=== PATIENT | female | born 1955 | race Hispanic/Latino ===

== ENCOUNTER 2016-03-03 10:21 | Outpatient (CLI) | payer BC ==
--- NOTE | 2016-03-03 12:48 | Mammography Report ---
LEFT DIGITAL DIAGNOSTIC MAMMOGRAM: 03/03/16 10:21:00 CLINICAL: For clip placement immediately status post MRI needle biopsy. COMPARISON:None. FINDINGS: A biopsy clip is identified in the upper-outer quadrant and the position correlates with the previously described MRI lesion. IMPRESSION: Concordant clip placement status post MRI biopsy. BI-RADS CATEGORY: 4--Suspicious Pathology pending.
--- NOTE | 2016-03-03 13:55 | Magnetic Resonance Report ---
MRI GUIDED VACUUM ASSISTED CORE BIOPSY LEFT BREAST: 03/03/16 10:21:00 CLINICAL: High risk, history of ADH and a suspicious lesion by MRI. COMPARISON: 02/24/16 MRI FINDINGS: Consent for the procedure was obtained. A Vibrant dynamic postcontrast series was performed on a 1.5 Liss magnet using an 8 channel Sentinelle dedicated breast coil. The previously described upper outer lesion was localized and targeted using [employer] Sentinelle biopsy software. The skin was anesthetized with 1% lidocaine and a small dermatotomy was made. 2% lidocaine was administered for deeper anesthesia. 9-G biopsy was performed with an Supponor vacuum assisted device. Imaging demonstrated satisfactory positioning of the probe and samples were obtained. A clip was placed after confirmation of adequate sampling. The probe was removed and hemostasis was achieved with pressure to the site. A sterile dressing was applied. The patient tolerated the procedure well and there were no apparent complications. A two view mammogram demonstrated concordant clip placement. The patient left the department in good condition with instructions for wound care and follow-up. IMPRESSION: Uncomplicated MRI biopsy with clip placement left breast.
== END 2016-03-03 10:22 | disposition home or self-care (01) ==
LOC: SPVIMAG 10:21
PROVIDERS: ATTEND Surgery
DX: R92.8 Other abnormal and inconclusive findings on diagnostic imaging of breast (principal)
CPT/HCPCS: 19085; 88307; 88342; 88361; A9577; G0206

== ENCOUNTER 2016-03-24 08:13 | Day surgery (SDC) | payer BC ==
[~2016-03-24 08:13] MED LIST: WATER FOR IRRIG STERILE IR ONE
[2016-03-24] MEDS ORDERED: XYLOCAINE 1% 20 mL ONE (10:17)
[2016-03-24] MEDS ORDERED: LACTATED RINGERS 1,000 ML ONE (10:24)
[2016-03-24] MEDS ORDERED: VERSED ONE (10:48)
[2016-03-24] MEDS ORDERED: PEPCID IV ONE (10:48)
[2016-03-24] MEDS ORDERED: DIPRIVAN 10 MG/ML IV ONE (11:19)
[2016-03-24] MEDS ORDERED: DILAUDID ONE (11:19)
[2016-03-24] MEDS ORDERED: ANCEF/STERILE WATER 2 GM/20 ML IV ONE (12:55)
[2016-03-24] MEDS ORDERED: DECADRON ONE (12:56)
[2016-03-24] MEDS ORDERED: XYLOCAINE MPF 2% ONE (12:57)
[2016-03-24] MEDS ORDERED: ZOFRAN ONE (12:57)
[2016-03-24] MEDS ORDERED: MARCAINE 0.25% INFILTRATI ONE (13:20)
[2016-03-24] MEDS ORDERED: XYLOCAINE 1% 20 mL INFILTRATI ONE (13:20)
[2016-03-24] MEDS ORDERED: NACL P/F VIAL (10 ML) 10 ML ONE (13:54)
[2016-03-24] MEDS ORDERED: ePHEDrine SULFATE ONE (13:54)
[2016-03-24] MEDS ORDERED: PEPCID IV NR (14:00)
[2016-03-24] MEDS ORDERED: LACTATED RINGERS 1,000 ML IV SCH (14:00)
[2016-03-24] MEDS ORDERED: ANCEF/STERILE WATER 2 GM/20 ML IV NR (14:00)
[2016-03-24] MEDS ORDERED: VERSED IV NR (14:00)
--- NOTE | 2016-03-24 14:15 | Anesthesia Consultation ---
Anesthesia Consult and Med Hx Date of service: 03/24/16 - Airway Anesthetic Teeth Evaluation: Good, Bridges (back) ROM Head & Neck: Adequate Mental/Hyoid Distance: Adequate Mallampati Class: Class II Intubation Access Assessment: Probably Good - Pre-Operative Health Status ASA Pre-Surgery Classification: ASA2 Proposed Anesthetic Plan: General - Pulmonary Hx Smoking: Yes (CIGARETTES 1/2 PPD X 3 YRS) Hx Sleep Apnea: No - Central Nervous System Hx Psychiatric Problems: No - Other Systems Hx Cancer: Yes (LEFT BREAST, DX: 02/2016)
[2016-03-24] MEDS ORDERED: WATER FOR IRRIG STERILE IR ONE (14:16)
--- NOTE | 2016-03-24 14:16 | Anesthesia Day of Surgery ---
Anesthesia Day of Surgery - Day of Surgery Patient Examined: Yes Patient H&P Reviewed: Yes Patient is NPO: Yes
--- NOTE | 2016-03-24 14:27 | Short Stay Summary ---
Short Stay Documentation Date of service: 03/24/16 - History H&P: obtained from office - Allergies and Medications Current Medications: Allergies No Known Allergies Allergy (Unverified 03/17/16 09:55) Home Medications Medication Instructions Recorded Confirmed Last Taken Type Aspirin EC [Aspirin Enteric Coated 81 mg PO QDAY 03/17/16 03/24/16 03/19/16 History TAB] Calcium Carbonate [Calcium] 1,200 mg PO QDAY 03/17/16 03/17/16 03/23/16 History Cholecalciferol (Vitamin D3) 2,000 unit PO QDAY 03/17/16 03/17/16 03/23/16 History [Vitamin D3] Cyanocobalamin (Vitamin B-12) 1,000 mcg PO QDAY 03/17/16 03/17/16 03/23/16 History [B-12] Folic Acid 800 mcg PO QDAY 03/17/16 03/17/16 03/23/16 History Multivitamin Tab [Multiple Vitamin 1 each PO QDAY 03/17/16 03/17/16 03/23/16 History TAB (Theragran)] [place]-3 Fatty Acids [Fish Oil] 300 mg PO QDAY 03/17/16 03/17/16 03/23/16 History HYDROcodone/APAP 5-325 [[place] 1 each PO Q6HR PRN #30 tablet 03/24/16 Unknown Rx 5/325] Active Medications Cefazolin Sodium (Ancef/Sterile Water 2 Gm/20 Ml) 2 gm IV PREOP NR Stop: 03/24/16 23:59 Famotidine (Pepcid) 20 mg IV PREOP NR Stop: 03/24/16 23:59 Lactated Ringer's (Lactated Ringers) 1,000 mls @ 75 mls/hr IV DIRECT FEMI Midazolam HCl (Versed) 2 mg IV PREOP NR Stop: 03/24/16 23:59 - Brief post op/procedure progress note Date of procedure: 03/24/16 Pre-op diagnosis: Left breast cancer of the upper outer quadrant Post-op diagnosis: same Procedure: Left Needle localization partial mastectomy Anesthesia: GETA Findings: Wire and clip present within radiograph specimen Surgeon: ALLEN DASILVA Estimated blood loss: minimal Pathology: list (left partial mastectomy) Specimen disposition: to lab Condition: stable - Disposition Condition at discharge: Good Disposition: DISCHARGED TO HOME OR SELFCARE Short Stay Discharge Plan Activity: other (no heavy lifting) Diet: regular Wound: other (keep incision clean and dry and may shower in 24 hours; do not rub or scrub incision) Follow up with: PILLO COWAN MD [Primary Care Provider] - 7 Days ALLEN DASILVA MD [Staff Physician] - 7 Days Prescriptions: HYDROcodone/APAP 5-325 [[place] 5/325] 1 each PO Q6HR PRN #30 tablet PRN Reason: Pain
--- NOTE | 2016-03-24 14:31 | Operative Report ---
Operative Report Operative Report: Please see previous operative report
[2016-03-24] MEDS ORDERED: TYLENOL PO NR (15:00)
--- NOTE | 2016-03-24 15:06 | Mammography Report ---
Localization: The patient presents with a biopsy marker in the superior lateral left breast. A superior approach was utilized. Grid mammography reviews for localization. Following cleansing of the skin 1% lidocaine used for local anesthesia. A 3 cm Guzman needle was placed confirmed with mammography. Following placement of the wire and removal of the needle additional mammographic confirmation of position was used. No complications encountered.
--- NOTE | 2016-03-24 15:07 | Mammography Report ---
Operative specimen mammogram: A single tissue specimen is submitted it includes the targeted marker and the localizing wire.
[2016-03-24 15:23] VITALS: BP 124/90
--- NOTE | 2016-03-24 15:24 | Procedure Note ---
Date of procedure: 03/24/16 Pre-op diagnosis: lt breast lesion Procedure: needle loc Anesthesia: local Surgeon: HILDA MOSS Estimated blood loss: none Pathology: none Condition: stable (surgery)
--- NOTE | 2016-03-24 19:05 | Operative Report ---
Date of Surgery: 03/24/16 PREOPERATIVE DIAGNOSIS: Left breast cancer of the upper outer quadrant. POSTOPERATIVE DIAGNOSIS: Left breast cancer of the upper outer quadrant. PROCEDURE: Left needle localization partial mastectomy. SURGEON: Julia Byrnes M.D. ANESTHESIA: General. FINDINGS: Radiograph specimen with clip and wire present within the partial mastectomy specimen. COMPLICATIONS: None. DRAINS: None. DISPOSITION: PACU in good condition. INDICATIONS FOR OPERATIVE PROCEDURE: This is a 60-year-old lady, high risk for breast cancer given personal history of atypia with a recent abnormal screening MRI with findings of non-mass enhancement. 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 Recommendations were to proceed with a left partial mastectomy. PROCEDURE IN DETAIL: The patient was taken to the operating room and was laid supine. General anesthesia was administered without any complications. The left breast was prepped and draped in normal sterile operative fashion. Radiology placed wire prior to going back to preoperative holding. The wire was identified. Time out was performed. Skin incision was then made with a 15-blade knife with dissection taken down through the subcutaneous tissues. First began with raising of the superior flap, followed by lateral, medial, and inferior flaps. Specimen was then appropriately removed from the breast with the aid of Bovie cautery. The specimen was appropriately marked. Radiograph specimen with clip and wire present. Hemostasis was obtained. The subcutaneous tissues were approximated and closed with a 3-0 Vicryl and the skin brought together with running 4-0 Monocryl and Skin Affix. The patient tolerated surgery very well. She was awakened from anesthesia without any complications and transported to PACU in good condition. JOB# [id number] CHIQUI/KENZIE VINCENT
== END 2016-03-24 16:00 | disposition home or self-care (01) ==
LOC: OR 08:13
PROVIDERS: ATTEND Surgery
DX: C50.412 Malignant neoplasm of upper-outer quadrant of left female breast (principal); F15.90 Other stimulant use, unspecified, uncomplicated; M13.841 Other specified arthritis, right hand; Z87.891 Personal history of nicotine dependence; Z85.3 Personal history of malignant neoplasm of breast; Z90.49 Acquired absence of other specified parts of digestive tract; Z98.890 Other specified postprocedural states
CPT/HCPCS: 19281; 19301; 76098; 88305; 88307; J0690; J1100; J1170; J2250; J2405; J2704; J7120

== ENCOUNTER 2016-05-27 14:48 | Outpatient (CLI) | payer BC | END 2016-05-27 14:49 | disposition home or self-care (01) | LOC: LABHHL 14:48 | PROVIDERS: ATTEND Specialist | DX: N64.89 Other specified disorders of breast (principal) | CPT/HCPCS: 87116 ==

== ENCOUNTER 2016-06-11 15:32 | Outpatient (CLI) | payer BC | END 2016-06-11 15:33 | disposition home or self-care (01) | LOC: LABHHL 15:32 | PROVIDERS: ATTEND Surgery | DX: N64.89 Other specified disorders of breast (principal) | CPT/HCPCS: 87116 ==

== ENCOUNTER 2016-06-28 15:13 | Outpatient (CLI) | payer BC | END 2016-06-28 15:14 | disposition home or self-care (01) | LOC: LABHHL 15:13 | PROVIDERS: ATTEND Surgery | DX: D48.7 Neoplasm of uncertain behavior of other specified sites (principal) | CPT/HCPCS: 88305 ==

== ENCOUNTER 2018-12-07 10:35 | Outpatient (CLI) | payer BC ==
--- NOTE | 2018-12-08 10:43 | Magnetic Resonance Report ---
BILATERAL BREAST MR WITHOUT AND WITH GADOLINIUM INDICATION: Breast cancer survivor status post left partial mastectomy and radiation therapy. COMPARISONS: 11/27/2018 screening mammogram. TECHNIQUE: Axial 1.0 mm T1 without, axial high-resolution 2.0 mm T2 and axial 1.0 mm dynamic vibrant high-resolution postcontrast T1 fat saturation sequences on a 1.5 Liss magnet. The examination was p erformed with an 8-channel dedicated Sentinelle breast coil. Post-processing with CAD and subtraction was performed on an [employer] workstation. 14.0 cc of MultiHance was injected without incident for the c ontrast portion of the exam. Consent was obtained prior to the administration of the contrast. FINDINGS: RIGHT BREAST: Minimal background parenchymal enhancement. No mass or suspicious enhancement. No suspi cious right axillary or right internal mammary lymph nodes. LEFT BREAST: Minimal background parenchymal enhancement. No mass or suspicious enhancement. Benign up per outer postsurgical scar with minimal enhancement at the scar. No suspicious left axillary or left internal mammary lymph nodes. IMPRESSION: Negative study with left benign postsurgical changes. BI-RADS Category 2: Benign Signer Name: Tres Amos MD Signed: 12/08/2018 10:38 AM Workstation Name: [id number]
== END 2018-12-07 10:36 | disposition home or self-care (01) ==
LOC: SPVIMAG 10:35
PROVIDERS: ATTEND Surgery
DX: Z85.3 Personal history of malignant neoplasm of breast (principal); Z87.891 Personal history of nicotine dependence
CPT/HCPCS: A9577; C8908; 77049

== ENCOUNTER 2019-12-11 14:18 | Outpatient (CLI) | payer MEDICARE ==
--- NOTE | 2019-12-12 10:39 | Magnetic Resonance Report ---
Bilateral breast MR without and with contrast. History: History of left breast mastectomy and radiation treatment. Comparison: 12/03/2019, 12/07/2018. Technique: Multiplanar multisequence MR images of the breast were obtained before and after the intra venous administration of intravenous contrast. Post processing analysis and review was performed on a separate computer workstation. Findings: Breast composition is heterogenously dense. There is moderate background parenchymal enhancement whic h decreases the sensitivity of MRI. RIGHT BREAST: Regional area of low level enhancing foci within the right lower outer breast appears n ot significantly changed. No enhancing mass, dominant focus, or other abnormal enhancement is identif ied within either breast. LEFT BREAST: Stable lumpectomy change in the left upper outer breast. No enhancing mass, dominant foc us, or other abnormal enhancement is identified. No abnormal axillary or internal mammary lymph nodes. Impression: No evidence of breast malignancy. Consider screening breast MRI one year given patient's high risk fo r breast malignancy. BIRADS 2: Benign A normal MRI does not exclude the presence of some forms of breast malignancy as literature reports s uggest that some forms of ductal carcinoma in situ or lobular carcinoma, particularly, may not be det ected on MRI. The sensitivity and specificity of MRI for cancers under 5 mm may be reduced. MRI does not replace the recommendation for annual conventional mammographic evaluation and should be used as an adjunct to mammography and physical examination as necessary. Signer Name: Jarek Burger MD Signed: 12/12/2019 10:34 AM Workstation Name: [id number]
== END 2019-12-11 14:19 | disposition home or self-care (01) ==
LOC: SPVIMAG 14:18
PROVIDERS: ATTEND Surgery
DX: Z85.3 Personal history of malignant neoplasm of breast (principal)
CPT/HCPCS: A9577; C8908; 77049

== ENCOUNTER 2020-12-03 10:36 | Outpatient (CLI) | payer MEDICARE ==
--- NOTE | 2020-12-03 16:42 | Mammography Report ---
DIGITAL SCREENING MAMMOGRAM WITH CAD, 12/03/2020 CLINICAL INFORMATION / INDICATION: Routine screening TECHNIQUE: Digital bilateral 2D mammography was obtained in the craniocaudal and mediolateral obliqu e projections. This examination was interpreted with the benefit of Computer-Aided Detection analysis . COMPARISON: 12/03/2019 FINDINGS: Breast Density: The breasts are extremely dense, which lowers the sensitivity of mammography. No dominant mass, suspicious calcifications, or architectural distortion in either breast. Bilateral surgical changes and benign-appearing calcifications are again seen. IMPRESSION: No mammographic evidence of malignancy. Follow up recommendation: Routine yearly BI-RADS Category 2: Benign. A "normal" or negative report should not discourage follow up or biopsy of a clinically significant f inding. A written summary of these findings will be mailed to the patient. The patient will be entered into a mammography reporting system which will generate a reminder letter for the patient's next appointmen t at the appropriate interval. The [employer] recommends yearly mammograms starting at age 40 and continuing as l gavin as a woman is in good health. Breast MRI is recommended for women with an approximate 20-25% or greater lifetime risk of breast cancer, including women with a strong family history of breast or ova elia cancer or who have been treated for Hodgkin's disease. Signer Name: Irving Cooley MD Signed: 12/03/2020 4:34 PM Workstation Name: [id number]
== END 2020-12-03 10:37 | disposition home or self-care (01) ==
LOC: SPVWC 10:36
PROVIDERS: ATTEND Family Medicine
DX: Z12.31 Encounter for screening mammogram for malignant neoplasm of breast (principal); N64.89 Other specified disorders of breast
CPT/HCPCS: 77067